=== PATIENT | female | born 1930 | race Caucasian/White ===

== ENCOUNTER → 2016-05-22 | Outpatient (CLI) | payer MEDICARE ==
[2016-05-22 10:32] LABS: Anisocytosis Slight; Basophils # (A) 0.1 k/uL (0-0.2); Basophils % (A) 1 %; CH 32.3; CHCM 31.7; Eosinophils # (A) 0.4 k/uL (0-0.7); Eosinophils % (A) 6 %; HCT 33.3 % (34.0-46.0); HDW 2.95; HGB 10.4 gm/dL (11.4-16.0); Hypochromasia Slight; Luc # (Auto) 0.14; Luc % (Auto) 2; Lymphocytes # (A) 1.3 k/uL (1.0-4.8); Lymphocytes % (A) 19 %; MCHC 31.2 g/dL (31.0-37.0); MCV 102.6 fL (80.0-100.0); Macrocytosis Moderate; Mean Platelet Volume 8.7; Monocytes # (A) 0.5 k/uL (0-1.0); Monocytes % (A) 7 %; Neutrophils # (A) 4.5 k/uL (1.3-7.7); Neutrophils % (A) 65 %; RBC 3.24 m/uL (3.80-5.40); RDW 16.3 % (11.5-15.5); WBC 6.9 k/uL (3.8-10.6); WBC (Perox) 6.93
[2016-05-22 11:20] LABS: Calcium 9.6 mg/dL (8.4-10.2); Magnesium 2.1 mg/dL (1.6-2.3); Phosphorous 4.7 mg/dL (2.5-4.5); Uric Acid 5.4 mg/dL (3.7-7.4)
[2016-05-22 11:23] LABS: Potassium 4.3 mmol/L (3.5-5.1)
[2016-05-22 11:29] LABS: % Iron Saturation 25.1 % (20-50)
== END | disposition home or self-care (01) ==
LOC: LABWHC1 09:39
PROVIDERS: ATTEND Internal Medicine Nephrology
DX: N18.5 Chronic kidney disease, stage 5 (principal); D64.9 Anemia, unspecified; E21.3 Hyperparathyroidism, unspecified; M10.9 Gout, unspecified; E55.9 Vitamin D deficiency, unspecified; N39.0 Urinary tract infection, site not specified
CPT/HCPCS: 36415; 80048; 82306; 82728; 83540; 83550; 83735; 83970; 84100; 84550; 85025